=== PATIENT | male | born 1990 | race African-American/Black ===

== ENCOUNTER 2021-04-18 10:11 | Inpatient (IN) | payer OTHER ==
[2021-04-18 10:28] VITALS: BMI 21.3
[2021-04-18] MEDS ORDERED: IBUPROFEN 400 MG TABLET (FP) PO PRN (10:44)
[2021-04-18] MEDS ORDERED: methaDONE HCL 10 MG TABLET (FOR DETOX USE ONLY) PO ONE (10:44)
[2021-04-18] MEDS ORDERED: MAGNESIUM CITRATE 300 ML BOTTLE PO PRN (10:44)
[2021-04-18] MEDS ORDERED: MENTHOL/PHENOL 1 EACH UD MM PRN (10:44)
[2021-04-18] MEDS ORDERED: cloNIDine HCL 0.1 MG TABLET PO PRN (10:44)
[2021-04-18] MEDS ORDERED: ONDANSETRON *ODT* 4 MG TABLET SL PRN (10:44)
[2021-04-18] MEDS ORDERED: ACETAMINOPHEN 325 MG TABLET (FP) PO PRN ×2 (10:44)
[2021-04-18] MEDS ORDERED: MAGNESIUM HYDROX 2400MG/30ML ORAL SUSPENSION 30 ML CUP PO PRN (10:44)
[2021-04-18] MEDS ORDERED: METHOCARBAMOL 500 MG TABLET PO PRN (10:44)
[2021-04-18] MEDS ORDERED: BISMUTH SUBSALICYLATE 524 MG/30 ML PO PRN (10:44)
[2021-04-18] MEDS ORDERED: MAG HYDROX/AL HYDROX/SIMETH 30 ML UNIT-DOSE CUP PO PRN (10:44)
[2021-04-18] MEDS ORDERED: hydrOXYzine PAMOATE 25 MG CAPSULE (FP) PO PRN (10:44)
[2021-04-18] MEDS: PRENATAL VITAMINS W/ FOLIC ACID TABLET (FP) PO SCH (12:32)
[2021-04-18] MEDS: NICOTINE 10 MG CARTRIDGE (INHALER) IH PRN (14:12)
[2021-04-18] MEDS: THIAMINE HCL 100 MG TABLET (FP) PO SCH (23:00)
[2021-04-18] MEDS: MELATONIN 5 MG TABLETS PO SCH (23:00)
[2021-04-19] MEDS ORDERED: methaDONE HCL 10 MG TABLET (FOR DETOX USE ONLY) ONE (09:13)
[2021-04-19] MEDS: PRENATAL VITAMINS W/ FOLIC ACID TABLET (FP) PO SCH (10:14)
[2021-04-19 13:18] LABS: HEMOGLOBIN 13.5 GM/dL (11.7-16.9); MCH 28.6 pg (25.7-33.7); MCHC 33.6 g/dl (32.0-35.9); MEAN CELL VOLUME 85.1 fl (80-96); MEAN PLT VOLUME 8.8 fl (7.5-11.1); PLATELET COUNT 280 10^3/uL (134-434); RDW 14.3 % (11.9-15.9); WHITE BLOOD COUNT 3.6 K/mm3 (4.0-10.0)
[2021-04-19 13:22] LABS: CALCIUM 9.3 mg/dL (8.5-10.1)
[2021-04-19 13:23] LABS: ALBUMIN 3.7 g/dl (3.4-5.0); BLOOD UREA NITROGEN 10.8 mg/dL (7-18)
[2021-04-19 13:27] LABS: BILIRUBIN,TOTAL 0.6 mg/dL (0.2-1); TOT PROT 7.2 g/dl (6.4-8.2)
[2021-04-19] MEDS: MELATONIN 5 MG TABLETS PO SCH (22:54)
[2021-04-19] MEDS: THIAMINE HCL 100 MG TABLET (FP) PO SCH (22:54)
[2021-04-20] MEDS ORDERED: methaDONE HCL 10 MG TABLET (FOR DETOX USE ONLY) PO ONE (10:00)
[2021-04-20] MEDS: PRENATAL VITAMINS W/ FOLIC ACID TABLET (FP) PO SCH (10:20)
[2021-04-20] MEDS: NICOTINE 10 MG CARTRIDGE (INHALER) IH PRN (12:47)
[2021-04-20] MEDS: THIAMINE HCL 100 MG TABLET (FP) PO SCH (22:51)
[2021-04-20] MEDS: MELATONIN 5 MG TABLETS PO SCH (22:51)
[2021-04-21] MEDS ORDERED: methaDONE HCL 10 MG TABLET (FOR DETOX USE ONLY) ONE (08:20)
[2021-04-21] MEDS: NICOTINE 10 MG CARTRIDGE (INHALER) IH PRN (09:21)
[2021-04-21] MEDS: PRENATAL VITAMINS W/ FOLIC ACID TABLET (FP) PO SCH (10:05)
[2021-04-21] MEDS: MELATONIN 5 MG TABLETS PO SCH (22:39)
[2021-04-21] MEDS: THIAMINE HCL 100 MG TABLET (FP) PO SCH (22:39)
[2021-04-22] MEDS ORDERED: methaDONE HCL 10 MG TABLET (FOR DETOX USE ONLY) PO ONE (10:00)
[2021-04-22] MEDS: PRENATAL VITAMINS W/ FOLIC ACID TABLET (FP) PO SCH (10:20)
[2021-04-22] MEDS: NICOTINE 10 MG CARTRIDGE (INHALER) IH PRN (12:39)
[2021-04-22] MEDS: MELATONIN 5 MG TABLETS PO SCH (22:44)
[2021-04-22] MEDS: THIAMINE HCL 100 MG TABLET (FP) PO SCH (22:44)
[2021-04-23 09:04] VITALS: BP 107/75; PULSE 67; TEMP 96.9
== END 2021-04-23 09:09 | disposition home or self-care (01) | DRG 773 ==
LOC: YASAS 10:11 → Y3N 11:53
PROVIDERS: ADMIT Allergy & Immunology; ATTEND Allergy & Immunology
PROC: HZ2ZZZZ Detoxification Services for Substance Abuse Treatment (ICD-10-PCS; principal; 2021-04-18)
DX: F11.23 Opioid dependence with withdrawal (principal); F17.210 Nicotine dependence, cigarettes, uncomplicated; F31.9 Bipolar disorder, unspecified
CPT/HCPCS: 36415; 80053; 85027; 85660; 86780; 93005; 93010; C9803; U0003; U0005

== ENCOUNTER 2022-03-31 15:43 | Inpatient (IN) | payer OTHER ==
[2022-03-31 16:18] VITALS: BMI 19.5
[2022-03-31] MEDS ORDERED: ACETAMINOPHEN 325 MG TABLET (FP) PO PRN (16:41)
[2022-03-31] MEDS ORDERED: LOPERAMIDE HCL 2 MG CAPSULE PO PRN (16:41)
[2022-03-31] MEDS ORDERED: MAGNESIUM HYDROX 2400MG/30ML ORAL SUSPENSION 30 ML CUP PO PRN (16:41)
[2022-03-31] MEDS ORDERED: guaiFENesin 200 MG/10 ML 10 ML UNIT-DOSE CUPS PO PRN (16:41)
[2022-03-31] MEDS ORDERED: MAGNESIUM CITRATE 300 ML BOTTLE PO PRN (16:41)
[2022-03-31] MEDS ORDERED: MAG HYDROX/AL HYDROX/SIMETH 30 ML UNIT-DOSE CUP PO PRN (16:41)
[2022-03-31] MEDS ORDERED: P-EPHED 60MG/TRIPROLIDI 2.5MG TABLET PO PRN (16:41)
[2022-03-31] MEDS ORDERED: IBUPROFEN 400 MG TABLET (FP) PO PRN (16:41)
[2022-03-31] MEDS: PRENATAL VITAMINS W/ FOLIC ACID TABLET (FP) PO SCH (22:34)
[2022-03-31] MEDS: NICOTINE 7 MG/24 HOURS TOPICAL PATCH TD SCH (22:34)
[2022-03-31] MEDS: hydrOXYzine PAMOATE 25 MG CAPSULE (FP) PO SCH ×2 (22:35→22:38)
[2022-03-31] MEDS: MELATONIN 5 MG TABLETS PO SCH (22:39)
[2022-03-31] MEDS: THIAMINE HCL 100 MG TABLET (FP) PO SCH (22:39)
[2022-03-31] MEDS ORDERED: TUBERCULIN PPD 5 TU/0.1ML VIAL ID ONE (22:40)
[2022-03-31] MEDS: NICOTINE 10 MG CARTRIDGE (INHALER) IH PRN (23:20)
[2022-04-01] MEDS: hydrOXYzine PAMOATE 25 MG CAPSULE (FP) PO SCH ×5 (06:46→21:20)
[2022-04-01] MEDS: PRENATAL VITAMINS W/ FOLIC ACID TABLET (FP) PO SCH (09:59)
[2022-04-01] MEDS: NICOTINE 7 MG/24 HOURS TOPICAL PATCH TD SCH (10:00)
[2022-04-01] MEDS: NICOTINE 10 MG CARTRIDGE (INHALER) IH PRN (10:00)
[2022-04-01 12:42] LABS: HEMATOCRIT 44.5 % (35.4-49); HEMOGLOBIN 14.5 GM/dL (11.7-16.9); MCH 27.9 pg (25.7-33.7); MCHC 32.7 g/dl (32.0-35.9); MEAN CELL VOLUME 85.4 fl (80-96); MEAN PLT VOLUME 8.4 fl (7.5-11.1); PLATELET COUNT 368 10^3/uL (134-434); RBC 5.21 M/mm3 (4.00-5.60); RDW 13.6 % (11.9-15.9)
[2022-04-01 12:46] LABS: EPI CELLS 8 /uL (0-25.1); HYALINE CASTS 1 /uL (0-3.1); URINE APPEARANCE CLEAR; URINE BACTERIA 2 /uL (0-1359); URINE BILIRUBIN NEGATIVE (NEGATIVE); URINE COLOR YELLOW; URINE GLUCOSE (UA) NEGATIVE (NEGATIVE); URINE KETONE TRACE (NEGATIVE); URINE LEUK ESTERASE TRACE (NEGATIVE); URINE NITRITE NEGATIVE (NEGATIVE); URINE PROTEIN NEGATIVE (NEGATIVE); URINE RBC 1 /uL (0-23.9); URINE WBC 7 /uL (0-25.8)
[2022-04-01 13:03] LABS: BLOOD UREA NITROGEN 16.5 mg/dL (7-18)
[2022-04-01 13:04] LABS: ALBUMIN 4.3 g/dl (3.4-5.0)
[2022-04-01 13:06] LABS: SYPHILIS W/ RPR CONF NON-REACTIVE (NONREACTIVE)
[2022-04-01 13:06] LABS: CREATININE 1.2 mg/dL (0.55-1.3)
[2022-04-01 13:08] LABS: BILIRUBIN,TOTAL 0.8 mg/dL (0.2-1); TOT PROT 8.2 g/dl (6.4-8.2)
[2022-04-01] MEDS: MELATONIN 5 MG TABLETS PO SCH (21:20)
[2022-04-01] MEDS: THIAMINE HCL 100 MG TABLET (FP) PO SCH (21:20)
[2022-04-02] MEDS: hydrOXYzine PAMOATE 25 MG CAPSULE (FP) PO SCH ×2 (06:50→10:09)
[2022-04-02] MEDS: PRENATAL VITAMINS W/ FOLIC ACID TABLET (FP) PO SCH (10:09)
[2022-04-02] MEDS: NICOTINE 7 MG/24 HOURS TOPICAL PATCH TD SCH (10:09)
[2022-04-02] MEDS ORDERED: hydrOXYzine PAMOATE 25 MG CAPSULE (FP) PO PRN (11:27)
[2022-04-02] MEDS: THIAMINE HCL 100 MG TABLET (FP) PO SCH (21:16)
[2022-04-02] MEDS: MELATONIN 5 MG TABLETS PO SCH (21:16)
[2022-04-03 07:01] VITALS: RESP 18
[2022-04-03] MEDS: NICOTINE 7 MG/24 HOURS TOPICAL PATCH TD SCH (11:30)
[2022-04-03] MEDS: PRENATAL VITAMINS W/ FOLIC ACID TABLET (FP) PO SCH (11:31)
[2022-04-03] MEDS: MELATONIN 5 MG TABLETS PO SCH (21:06)
[2022-04-03] MEDS: THIAMINE HCL 100 MG TABLET (FP) PO SCH (21:06)
[2022-04-04] MEDS: NICOTINE 7 MG/24 HOURS TOPICAL PATCH TD SCH (11:53)
[2022-04-04] MEDS: PRENATAL VITAMINS W/ FOLIC ACID TABLET (FP) PO SCH (11:53)
[2022-04-04] MEDS: MELATONIN 5 MG TABLETS PO SCH (21:15)
[2022-04-04] MEDS: THIAMINE HCL 100 MG TABLET (FP) PO SCH (21:15)
[2022-04-05 06:56] VITALS: BP 108/77; PULSE 60; TEMP 97.7
[2022-04-05] MEDS: PRENATAL VITAMINS W/ FOLIC ACID TABLET (FP) PO SCH (09:52)
[2022-04-05] MEDS: NICOTINE 7 MG/24 HOURS TOPICAL PATCH TD SCH (09:52)
== END 2022-04-05 11:11 | disposition left against medical advice (07) | DRG 770 ==
LOC: YASAS 15:43 → Y3W 22:15
PROVIDERS: ADMIT Allergy & Immunology; ATTEND Psychiatry & Neurology Pain Medicine
PROC: HZ42ZZZ Group Counseling for Substance Abuse Treatment, Cognitive-Behavioral (ICD-10-PCS; principal; 2022-03-31)
DX: F11.20 Opioid dependence, uncomplicated (principal); F12.20 Cannabis dependence, uncomplicated; F17.210 Nicotine dependence, cigarettes, uncomplicated; Z86.59 Personal history of other mental and behavioral disorders; Z91.013 Allergy to seafood
CPT/HCPCS: 36415; 80053; 81003; 85027; 86780; 86803; C9803-CS; U0003; U0005

== ENCOUNTER 2023-02-15 16:31 | Inpatient (IN) | payer OTHER ==
[2023-02-15 18:38] VITALS: BMI 22.3
[2023-02-15] MEDS ORDERED: NICOTINE POLACRILEX 2 MG GUM BUC PRN (21:10)
[2023-02-15] MEDS ORDERED: MAG HYDROX/AL HYDROX/SIMETH 30 ML UNIT-DOSE CUP PO PRN (21:10)
[2023-02-15] MEDS ORDERED: MAGNESIUM HYDROX 2400MG/30ML ORAL SUSPENSION 30 ML CUP PO PRN (21:10)
[2023-02-15] MEDS ORDERED: DICYCLOMINE HCL 10 MG CAPSULE PO PRN (21:10)
[2023-02-15] MEDS ORDERED: ONDANSETRON *ODT* 4 MG TABLET SL PRN (21:10)
[2023-02-15] MEDS ORDERED: POLYETHYLENE GLYCOL (HEALTHYLAX) 3350 17 GM PACKET PO PRN (21:10)
[2023-02-15] MEDS ORDERED: IBUPROFEN 600 MG TABLET (FP) PO PRN (21:10)
[2023-02-15] MEDS ORDERED: methaDONE HCL 10 MG TABLET (FOR DETOX USE ONLY) PO ONE (21:10)
[2023-02-15] MEDS ORDERED: BENZOCAINE/MENTHOL (CHLORASEPTIC ) LOZENGE MM PRN (21:10)
[2023-02-15] MEDS ORDERED: ACETAMINOPHEN 325 MG TABLET (FP) PO PRN (21:10)
[2023-02-15] MEDS ORDERED: LOPERAMIDE HCL 2 MG CAPSULE PO PRN (21:10)
[2023-02-15] MEDS ORDERED: guaiFENesin 600 MG TABLET.ER (FP) PO PRN (21:10)
[2023-02-15] MEDS ORDERED: BISMUTH SUBSALICYLATE 524 MG/30 ML PO PRN (21:10)
[2023-02-15] MEDS ORDERED: NALOXONE HCL (KLOXXADO) 8 MG SPRAY NS PRN (21:10)
[2023-02-15] MEDS ORDERED: BENZONATATE 200 MG CAPSULE PO PRN (21:10)
[2023-02-15] MEDS ORDERED: NALOXONE HCL 0.4 MG/ML VIAL IM PRN (21:10)
[2023-02-15] MEDS ORDERED: IBUPROFEN 400 MG TABLET (FP) PO PRN (21:10)
[2023-02-15] MEDS ORDERED: methaDONE HCL 10 MG TABLET (FOR DETOX USE ONLY) ONE (21:36)
[2023-02-15] MEDS: MELATONIN 5 MG TABLETS PO SCH (22:58)
[2023-02-15] MEDS: THIAMINE HCL 100 MG TABLET (FP) PO SCH (22:58)
[2023-02-16] MEDS ORDERED: methaDONE HCL 10 MG TABLET (FOR DETOX USE ONLY) PO ONE ×2 (06:00→10:00)
[2023-02-16] MEDS: NICOTINE 14 MG/24 HOURS TOPICAL PATCH TD SCH (09:49)
[2023-02-16] MEDS: PRENATAL VITAMINS W/ FOLIC ACID TABLET (FP) PO SCH (09:50)
[2023-02-16 11:19] LABS: HEMATOCRIT 39.7 % (35.4-49); MCH 27.4 pg (25.7-33.7); MCHC 32.8 g/dl (32.0-35.9); MEAN CELL VOLUME 83.7 fl (80-96); MEAN PLT VOLUME 8.7 fl (7.5-11.1); PLATELET COUNT 299 10^3/uL (134-434); RBC 4.74 M/mm3 (4.00-5.60); RDW 13.9 % (11.9-15.9); WHITE BLOOD COUNT 3.5 K/mm3 (4.0-10.0)
[2023-02-16 13:32] LABS: POTASSIUM 4.1 mmol/L (3.5-5.1)
[2023-02-16 13:35] LABS: CALCIUM 9.7 mg/dL (8.5-10.1)
[2023-02-16 13:38] LABS: ALBUMIN 3.6 g/dl (3.4-5.0); CREATININE 0.9 mg/dL (0.55-1.3)
[2023-02-16 13:39] LABS: BLOOD UREA NITROGEN 9.8 mg/dL (7-18)
[2023-02-16 13:41] LABS: BILIRUBIN,TOTAL 0.5 mg/dL (0.2-1); TOT PROT 7.1 g/dl (6.4-8.2)
[2023-02-16 14:44] LABS: HIV INTERPRETATION NEGATIVE (NEGATIVE)
[2023-02-16] MEDS: cloNIDine HCL 0.1 MG TABLET PO PRN (22:29)
[2023-02-16] MEDS: MELATONIN 5 MG TABLETS PO SCH (22:29)
[2023-02-16] MEDS: THIAMINE HCL 100 MG TABLET (FP) PO SCH (22:30)
[2023-02-17] MEDS ORDERED: methaDONE HCL 10 MG TABLET (FOR DETOX USE ONLY) PO ONE (10:00)
[2023-02-17] MEDS: NICOTINE 14 MG/24 HOURS TOPICAL PATCH TD SCH (10:07)
[2023-02-17] MEDS: PRENATAL VITAMINS W/ FOLIC ACID TABLET (FP) PO SCH (10:07)
[2023-02-17] MEDS: MELATONIN 5 MG TABLETS PO SCH (22:06)
[2023-02-17] MEDS: THIAMINE HCL 100 MG TABLET (FP) PO SCH (22:06)
[2023-02-17] MEDS: cloNIDine HCL 0.1 MG TABLET PO PRN (22:07)
[2023-02-18 09:08] VITALS: BP 106/72; PULSE 60; RESP 16; TEMP 97.7
[2023-02-18] MEDS: NICOTINE 14 MG/24 HOURS TOPICAL PATCH TD SCH (09:40)
[2023-02-18] MEDS: PRENATAL VITAMINS W/ FOLIC ACID TABLET (FP) PO SCH (09:40)
[2023-02-18] MEDS ORDERED: methaDONE HCL 10 MG TABLET (FOR DETOX USE ONLY) PO ONE (10:00)
== END 2023-02-18 09:46 | disposition home or self-care (01) | DRG 773 ==
LOC: YASAS 16:31 → Y3N 22:02
PROVIDERS: ADMIT Allergy & Immunology; ATTEND Allergy & Immunology
PROC: HZ2ZZZZ Detoxification Services for Substance Abuse Treatment (ICD-10-PCS; principal; 2023-02-15)
DX: F11.23 Opioid dependence with withdrawal (principal); F10.230 Alcohol dependence with withdrawal, uncomplicated; F12.20 Cannabis dependence, uncomplicated; F17.210 Nicotine dependence, cigarettes, uncomplicated; F31.9 Bipolar disorder, unspecified; F19.24 Other psychoactive substance dependence with psychoactive substance-induced mood disorder; G47.00 Insomnia, unspecified
CPT/HCPCS: 36415; 80053; 85027; 86780; 87389; 87635; 87811; 93005; 93010

== ENCOUNTER 2023-03-17 16:49 | Inpatient (IN) | payer OTHER ==
[2023-03-17 20:15] VITALS: BMI 22.6
[2023-03-17] MEDS ORDERED: NALOXONE HCL 0.4 MG/ML VIAL IM PRN (23:18)
[2023-03-17] MEDS ORDERED: NICOTINE POLACRILEX 2 MG GUM BUC PRN (23:18)
[2023-03-17] MEDS ORDERED: BENZOCAINE/MENTHOL (CHLORASEPTIC ) LOZENGE MM PRN (23:18)
[2023-03-17] MEDS ORDERED: LOPERAMIDE HCL 2 MG CAPSULE PO PRN (23:18)
[2023-03-17] MEDS ORDERED: ACETAMINOPHEN 325 MG TABLET (FP) PO PRN (23:18)
[2023-03-17] MEDS ORDERED: MAGNESIUM HYDROX 2400MG/30ML ORAL SUSPENSION 30 ML CUP PO PRN (23:18)
[2023-03-17] MEDS ORDERED: IBUPROFEN 600 MG TABLET (FP) PO PRN (23:18)
[2023-03-17] MEDS ORDERED: POLYETHYLENE GLYCOL (HEALTHYLAX) 3350 17 GM PACKET PO PRN (23:18)
[2023-03-17] MEDS ORDERED: IBUPROFEN 400 MG TABLET (FP) PO PRN (23:18)
[2023-03-17] MEDS ORDERED: guaiFENesin 600 MG TABLET.ER (FP) PO PRN (23:18)
[2023-03-17] MEDS ORDERED: MAG HYDROX/AL HYDROX/SIMETH 30 ML UNIT-DOSE CUP PO PRN (23:18)
[2023-03-17] MEDS ORDERED: DICYCLOMINE HCL 10 MG CAPSULE PO PRN (23:18)
[2023-03-17] MEDS ORDERED: NALOXONE HCL (KLOXXADO) 8 MG SPRAY NS PRN (23:18)
[2023-03-17] MEDS ORDERED: BENZONATATE 200 MG CAPSULE PO PRN (23:18)
[2023-03-17] MEDS ORDERED: P-EPHED 60MG/TRIPROLIDI 2.5MG TABLET PO PRN (23:18)
[2023-03-17] MEDS ORDERED: ONDANSETRON *ODT* 4 MG TABLET SL PRN (23:18)
[2023-03-17] MEDS ORDERED: BISMUTH SUBSALICYLATE 524 MG/30 ML PO PRN (23:18)
[2023-03-17] MEDS ORDERED: cloNIDine HCL 0.1 MG TABLET PO PRN (23:20)
[2023-03-18] MEDS ORDERED: METHOCARBAMOL 500 MG TABLET ONE (02:30)
[2023-03-18] MEDS ORDERED: hydrOXYzine PAMOATE 25 MG CAPSULE (FP) PO ONE (02:30)
[2023-03-18] MEDS ORDERED: diazePAM 5 MG TABLET ONE (02:30)
[2023-03-18] MEDS: diazePAM 5 MG TABLET PO PRN ×2 (02:34→22:28)
[2023-03-18] MEDS: METHOCARBAMOL 500 MG TABLET PO PRN ×2 (02:34→10:23)
[2023-03-18] MEDS: hydrOXYzine PAMOATE 25 MG CAPSULE (FP) PO PRN ×2 (02:34→10:23)
[2023-03-18] MEDS ORDERED: cloNIDine HCL 0.1 MG TABLET PO PRN (08:19)
[2023-03-18] MEDS ORDERED: methaDONE HCL 10 MG TABLET (FOR DETOX USE ONLY) PO ONE (08:30)
[2023-03-18] MEDS: PRENATAL VITAMINS W/ FOLIC ACID TABLET (FP) PO SCH (10:23)
[2023-03-18] MEDS ORDERED: methaDONE HCL 10 MG TABLET PO SCH (10:45)
[2023-03-18 12:00] LABS: HEMATOCRIT 36.1 % (35.4-49); HEMOGLOBIN 11.9 GM/dL (11.7-16.9); MCH 27.8 pg (25.7-33.7); MCHC 33.1 g/dl (32.0-35.9); MEAN PLT VOLUME 8.5 fl (7.5-11.1); PLATELET COUNT 288 10^3/uL (134-434); RDW 14.3 % (11.9-15.9); WHITE BLOOD COUNT 4.3 K/mm3 (4.0-10.0)
[2023-03-18 12:56] LABS: BLOOD UREA NITROGEN 9.9 mg/dL (7-18); CALCIUM 8.7 mg/dL (8.5-10.1)
[2023-03-18 12:57] LABS: ALBUMIN 3.6 g/dl (3.4-5.0)
[2023-03-18 13:00] LABS: CREATININE 0.8 mg/dL (0.55-1.3)
[2023-03-18 13:01] LABS: BILIRUBIN,TOTAL 0.6 mg/dL (0.2-1); TOT PROT 6.6 g/dl (6.4-8.2)
[2023-03-18] MEDS ORDERED: MELATONIN 5 MG TABLETS PO SCH (22:00)
[2023-03-18] MEDS ORDERED: THIAMINE HCL 100 MG TABLET (FP) PO SCH (22:00)
[2023-03-19 09:16] VITALS: BP 142/94; PULSE 64; RESP 18; TEMP 98.2
[2023-03-19] MEDS: METHOCARBAMOL 500 MG TABLET PO PRN (10:06)
[2023-03-19] MEDS: PRENATAL VITAMINS W/ FOLIC ACID TABLET (FP) PO SCH (10:06)
[2023-03-19] MEDS: hydrOXYzine PAMOATE 25 MG CAPSULE (FP) PO PRN (10:06)
[2023-03-20] MEDS ORDERED: methaDONE HCL 10 MG TABLET (FOR DETOX USE ONLY) PO ONE (10:00)
[2023-03-22] MEDS ORDERED: methaDONE HCL 10 MG TABLET (FOR DETOX USE ONLY) PO ONE (10:00)
== END 2023-03-19 11:20 | disposition left against medical advice (07) | DRG 770 ==
LOC: YASAS 16:49 → Y6N 03-18 02:33
PROVIDERS: ADMIT Allergy & Immunology; ATTEND Surgery
PROC: HZ2ZZZZ Detoxification Services for Substance Abuse Treatment (ICD-10-PCS; principal; 2023-03-18)
DX: F11.23 Opioid dependence with withdrawal (principal); F12.20 Cannabis dependence, uncomplicated; F17.210 Nicotine dependence, cigarettes, uncomplicated; F19.24 Other psychoactive substance dependence with psychoactive substance-induced mood disorder; Z86.59 Personal history of other mental and behavioral disorders
CPT/HCPCS: 36415; 80053; 85027; 86780; 87635; 87811

== ENCOUNTER 2023-04-23 14:16 | Inpatient (IN) | payer OTHER ==
[2023-04-23 15:16] VITALS: BMI 22.3
[2023-04-23] MEDS ORDERED: cloNIDine HCL 0.1 MG TABLET PO PRN (17:07)
[2023-04-23] MEDS ORDERED: POLYETHYLENE GLYCOL (HEALTHYLAX) 3350 17 GM PACKET PO PRN (17:07)
[2023-04-23] MEDS ORDERED: BENZOCAINE/MENTHOL (CHLORASEPTIC ) LOZENGE MM PRN (17:07)
[2023-04-23] MEDS ORDERED: BENZONATATE 200 MG CAPSULE PO PRN (17:07)
[2023-04-23] MEDS ORDERED: DICYCLOMINE HCL 10 MG CAPSULE PO PRN (17:07)
[2023-04-23] MEDS ORDERED: MAG HYDROX/AL HYDROX/SIMETH 30 ML UNIT-DOSE CUP PO PRN (17:07)
[2023-04-23] MEDS ORDERED: ACETAMINOPHEN 325 MG TABLET (FP) PO PRN (17:07)
[2023-04-23] MEDS ORDERED: hydrOXYzine PAMOATE 25 MG CAPSULE (FP) PO PRN (17:07)
[2023-04-23] MEDS ORDERED: ONDANSETRON *ODT* 4 MG TABLET SL PRN (17:07)
[2023-04-23] MEDS ORDERED: METHOCARBAMOL 500 MG TABLET PO PRN (17:07)
[2023-04-23] MEDS ORDERED: NICOTINE POLACRILEX 2 MG GUM BUC PRN (17:07)
[2023-04-23] MEDS ORDERED: MAGNESIUM HYDROX 2400MG/30ML ORAL SUSPENSION 30 ML CUP PO PRN (17:07)
[2023-04-23] MEDS ORDERED: guaiFENesin 600 MG TABLET.ER (FP) PO PRN (17:07)
[2023-04-23] MEDS ORDERED: NALOXONE HCL 0.4 MG/ML VIAL IM PRN (17:07)
[2023-04-23] MEDS ORDERED: methaDONE HCL 10 MG TABLET (FOR DETOX USE ONLY) PO ONE (17:07)
[2023-04-23] MEDS ORDERED: IBUPROFEN 600 MG TABLET (FP) PO PRN (17:07)
[2023-04-23] MEDS ORDERED: LOPERAMIDE HCL 2 MG CAPSULE PO PRN (17:07)
[2023-04-23] MEDS ORDERED: IBUPROFEN 400 MG TABLET (FP) PO PRN (17:07)
[2023-04-23] MEDS ORDERED: NALOXONE HCL (KLOXXADO) 8 MG SPRAY NS PRN (17:07)
[2023-04-23] MEDS ORDERED: BISMUTH SUBSALICYLATE 524 MG/30 ML PO PRN (17:07)
[2023-04-23] MEDS ORDERED: methaDONE HCL 10 MG TABLET (FOR DETOX USE ONLY) ONE (17:30)
[2023-04-23] MEDS: MELATONIN 5 MG TABLETS PO SCH (22:58)
[2023-04-23] MEDS: THIAMINE HCL 100 MG TABLET (FP) PO SCH (22:58)
[2023-04-24 09:41] LABS: POTASSIUM 4.2 mmol/L (3.5-5.1)
[2023-04-24 09:43] LABS: HEMATOCRIT 34.2 % (35.4-49); MCHC 35.1 g/dl (32.0-35.9); MEAN CELL VOLUME 82.6 fl (80-96); MEAN PLT VOLUME 7.8 fl (7.5-11.1); PLATELET COUNT 363 10^3/uL (134-434); RBC 4.14 M/mm3 (4.00-5.60); RDW 14.1 % (11.9-15.9); WHITE BLOOD COUNT 6.5 K/mm3 (4.0-10.0)
[2023-04-24 09:50] LABS: CREATININE 0.8 mg/dL (0.55-1.3)
[2023-04-24 09:51] LABS: CALCIUM 8.4 mg/dL (8.5-10.1)
[2023-04-24 09:52] LABS: BILIRUBIN,TOTAL 0.2 mg/dL (0.2-1)
[2023-04-24 09:53] LABS: BLOOD UREA NITROGEN 6.6 mg/dL (7-18)
[2023-04-24] MEDS: PRENATAL VITAMINS W/ FOLIC ACID TABLET (FP) PO SCH (10:23)
[2023-04-24] MEDS: MELATONIN 5 MG TABLETS PO SCH (21:52)
[2023-04-24] MEDS: THIAMINE HCL 100 MG TABLET (FP) PO SCH (21:52)
[2023-04-25] MEDS ORDERED: methaDONE HCL 10 MG TABLET (FOR DETOX USE ONLY) PO ONE (10:00)
[2023-04-25] MEDS: PRENATAL VITAMINS W/ FOLIC ACID TABLET (FP) PO SCH (10:29)
[2023-04-25 12:55] VITALS: RESP 18
[2023-04-25] MEDS: MELATONIN 5 MG TABLETS PO SCH (22:22)
[2023-04-25] MEDS: THIAMINE HCL 100 MG TABLET (FP) PO SCH (22:22)
[2023-04-26 09:19] VITALS: TEMP 98
[2023-04-26] MEDS: PRENATAL VITAMINS W/ FOLIC ACID TABLET (FP) PO SCH (10:24)
[2023-04-26 12:47] VITALS: BP 118/75; PULSE 77
[2023-04-27] MEDS ORDERED: methaDONE HCL 10 MG TABLET (FOR DETOX USE ONLY) PO ONE (10:00)
== END 2023-04-26 14:32 | disposition left against medical advice (07) | DRG 770 ==
LOC: YASAS 14:16 → Y3N 17:24
PROVIDERS: ADMIT Allergy & Immunology; ATTEND Surgery
PROC: HZ2ZZZZ Detoxification Services for Substance Abuse Treatment (ICD-10-PCS; principal; 2023-04-23)
DX: F11.23 Opioid dependence with withdrawal (principal); F17.210 Nicotine dependence, cigarettes, uncomplicated; F19.24 Other psychoactive substance dependence with psychoactive substance-induced mood disorder
CPT/HCPCS: 36415; 80053; 85027; 86780; 87635; 87811

== ENCOUNTER 2023-08-04 16:36 | Inpatient (IN) | payer OTHER ==
[2023-08-04 17:12] VITALS: BMI 20.9
[2023-08-04] MEDS ORDERED: cloNIDine HCL 0.1 MG TABLET PO PRN (20:17)
[2023-08-04] MEDS ORDERED: LOPERAMIDE HCL 2 MG CAPSULE PO PRN (20:17)
[2023-08-04] MEDS ORDERED: BISMUTH SUBSALICYLATE 524 MG/30 ML PO PRN (20:17)
[2023-08-04] MEDS ORDERED: NALOXONE HCL (KLOXXADO) 8 MG SPRAY NS PRN (20:17)
[2023-08-04] MEDS ORDERED: methaDONE HCL 10 MG TABLET (FOR DETOX USE ONLY) PO ONE (20:17)
[2023-08-04] MEDS ORDERED: MAG HYDROX/AL HYDROX/SIMETH 30 ML UNIT-DOSE CUP PO PRN (20:17)
[2023-08-04] MEDS ORDERED: POLYETHYLENE GLYCOL (HEALTHYLAX) 3350 17 GM PACKET PO PRN (20:17)
[2023-08-04] MEDS ORDERED: MAGNESIUM HYDROX 2400MG/30ML ORAL SUSPENSION 30 ML CUP PO PRN (20:17)
[2023-08-04] MEDS ORDERED: BENZONATATE 200 MG CAPSULE PO PRN (20:17)
[2023-08-04] MEDS ORDERED: NALOXONE HCL 0.4 MG/ML VIAL IM PRN (20:17)
[2023-08-04] MEDS ORDERED: hydrOXYzine PAMOATE 25 MG CAPSULE (FP) PO PRN (20:17)
[2023-08-04] MEDS ORDERED: ACETAMINOPHEN 325 MG TABLET (FP) PO PRN (20:17)
[2023-08-04] MEDS ORDERED: BENZOCAINE/MENTHOL (CHLORASEPTIC ) LOZENGE MM PRN (20:17)
[2023-08-04] MEDS ORDERED: guaiFENesin 600 MG TABLET.ER (FP) PO PRN (20:17)
[2023-08-04] MEDS ORDERED: ONDANSETRON *ODT* 4 MG TABLET SL PRN (20:17)
[2023-08-04] MEDS ORDERED: DICYCLOMINE HCL 10 MG CAPSULE PO PRN (20:17)
[2023-08-04] MEDS ORDERED: IBUPROFEN 400 MG TABLET (FP) PO PRN (20:17)
[2023-08-04] MEDS ORDERED: IBUPROFEN 600 MG TABLET (FP) PO PRN (20:17)
[2023-08-04] MEDS ORDERED: METHOCARBAMOL 500 MG TABLET PO PRN (20:17)
[2023-08-04] MEDS: THIAMINE HCL 100 MG TABLET (FP) PO SCH (21:19)
[2023-08-04] MEDS: MELATONIN 5 MG TABLETS PO SCH (21:20)
[2023-08-05] MEDS: PRENATAL VITAMINS W/ FOLIC ACID TABLET (FP) PO SCH (09:47)
[2023-08-05 10:40] LABS: HEMOGLOBIN 12.2 GM/dL (11.7-16.9); MCH 28.2 pg (25.7-33.7); MCHC 33.9 g/dl (32.0-35.9); MEAN CELL VOLUME 83.2 fl (80-96); PLATELET COUNT 313 10^3/uL (134-434); RBC 4.33 M/mm3 (4.00-5.60); RDW 14.2 % (11.9-15.9); WHITE BLOOD COUNT 5.2 K/mm3 (4.0-10.0)
[2023-08-05 10:55] LABS: CHLORIDE 108 mmol/L (98-107); POTASSIUM 4.3 mmol/L (3.5-5.1); SODIUM 141 mmol/L (136-145)
[2023-08-05 11:01] LABS: GLUCOSE,RANDOM 99 mg/dL (74-106)
[2023-08-05 11:02] LABS: ALBUMIN 3.3 g/dl (3.4-5.0); ANION GAP 5 mmol/L (4-13); BLOOD UREA NITROGEN 10.6 mg/dL (7-18); CALCIUM 9.3 mg/dL (8.5-10.1); CO2 28 mmol/L (21-32); SGOT/AST 9 U/L (15-37); SGPT/ALT 14 U/L (13-61)
[2023-08-05 11:04] LABS: BILIRUBIN,TOTAL 0.3 mg/dL (0.2-1); TOT PROT 6.4 g/dl (6.4-8.2)
[2023-08-05 11:05] LABS: ALK PHOS 48 U/L (45-117)
[2023-08-05 11:06] LABS: CREATININE 0.8 mg/dL (0.55-1.3)
[2023-08-05] MEDS: THIAMINE HCL 100 MG TABLET (FP) PO SCH (22:27)
[2023-08-05] MEDS: MELATONIN 5 MG TABLETS PO SCH (22:28)
[2023-08-06 07:05] VITALS: RESP 16; TEMP 97.7
[2023-08-06] MEDS: PRENATAL VITAMINS W/ FOLIC ACID TABLET (FP) PO SCH (09:21)
[2023-08-06] MEDS ORDERED: methaDONE HCL 10 MG TABLET (FOR DETOX USE ONLY) PO ONE (10:00)
[2023-08-06 10:39] VITALS: BP 124/72; PULSE 71
[2023-08-08] MEDS ORDERED: methaDONE HCL 10 MG TABLET (FOR DETOX USE ONLY) PO ONE (10:00)
== END 2023-08-06 12:30 | disposition left against medical advice (07) | DRG 770 ==
LOC: YASAS 16:36 → Y6N 20:34
PROVIDERS: ADMIT Allergy & Immunology; ATTEND Allergy & Immunology
PROC: HZ2ZZZZ Detoxification Services for Substance Abuse Treatment (ICD-10-PCS; principal; 2023-08-04)
DX: F11.23 Opioid dependence with withdrawal (principal); F17.210 Nicotine dependence, cigarettes, uncomplicated; F31.9 Bipolar disorder, unspecified
CPT/HCPCS: 36415; 80053; 80307; 85027; 86780; 87635